=== PATIENT | male | born 1995 | race African-American/Black ===

== ENCOUNTER 2022-12-23 17:11 | Emergency (ER) | payer SELFPAY ==
[~2022-12-23] VITALS: Ht 185.4 cm; Wt 77.1 kg
[2022-12-23 17:26] VITALS: BP 124/81
--- NOTE | 2022-12-23 17:29 | NUR ---
PATIENT ENDORSING NECK AND BACK PAIN (9/10), STATES THAT HE ATTRIBUTES THE PAIN FROM REPETITIVE ACTIONS AT WORK. DENIES FALLS, DENIES INJURY. PATIENT WORKS AT [employer].
--- NOTE | 2022-12-23 17:47 | NUR ---
SEEN AND EVALUATED BY DR KAUR, MSE COMPLETED.
[2022-12-23 18:14] VITALS: BP 124/81
--- NOTE | 2022-12-23 18:14 | NUR ---
pt refusing to sign discharge paperwork, states he does not want to finish workers comp paperwork. discharge paperwork left on chair.
== END 2022-12-23 18:14 | disposition home or self-care (01) ==
LOC: MED 17:11
DX: S16.1XXA Strain of muscle, fascia and tendon at neck level, initial encounter (principal); S39.012A Strain of muscle, fascia and tendon of lower back, initial encounter; X58.XXXA Exposure to other specified factors, initial encounter; Y93.89 Activity, other specified; Y92.89 Other specified places as the place of occurrence of the external cause; Y99.8 Other external cause status
CPT/HCPCS: 99282